=== PATIENT | female | born 2000 | race Caucasian/White ===

== ENCOUNTER 2022-06-25 00:02 | Emergency (ER) | payer BC ==
[2022-06-25 02:28] LABS: MONO NEGATIVE CONTROL ZONE White (Negative) (White); MONO POSITIVE CONTROL Pink Line (Positive) (PINK/RED); Mononucleosis POSITIVE (NEGATIVE)
== END 2022-06-25 03:25 | disposition home or self-care (01) ==
LOC: CSHERS 00:02
DX: B27.90 Infectious mononucleosis, unspecified without complication (principal)
CPT/HCPCS: 36415; 86308; 99283